=== PATIENT | female | born 2000 | race Caucasian/White ===

== ENCOUNTER 2023-04-17 21:50 | Emergency (ER) | payer BC, MEDICAID, SELFPAY ==
[2023-04-17 22:09] VITALS: BP 119/76; PULSE 85; RESP 18; TEMP 36.9; O2SAT 100; BMI 20.8
[2023-04-18] VITALS: BP 112/66; PULSE 87; RESP 18; TEMP 36.9; O2SAT 98
--- NOTE | 2023-04-18 00:56 | ED.DENTAL ---
HPI - Dental/Oral General Chief complaint: Dental/Oral Stated complaint: tooth pain Time Seen by Provider: 04/18/23 00:50 Source: patient Mode of arrival: ambulatory Limitations: no limitations History of Present Illness HPI Narrative: Patient comes to the emergency room complaining of pain in the maxillary side on the right posteriorly. Patient states the pain started yesterday. Patient states that few months ago, possibly 4-5, patient had feeling some. Over the last couple of days, the pain started and gradually getting worse. Related Data Allergies Allergy/AdvReac Type Severity Reaction Status Date / Time No Known Allergies Allergy Verified 04/17/23 22:07 Review of Systems Review of Systems: Constitutional : No Weight loss, No Fever, No Chills, No Night Sweats, No Fatigue, No Malaise ENT/Mouth : Complaining of dental pain on right maxillary side, No Hearing loss, No Ear Pain, No Nasal Congestion, No Sinus Pain, No Hoarseness, No sore throat, No Rhinorrhea, No Swallowing Difficulty Eyes: No Eye Pain, No Swelling, No Redness, No Foreign Body, No Discharge, No Vision Changes Cardiovascular : No Chest Pain, No SOB, No Dyspnea on Exertion, No Orthopnea, No Edema, No Palpitations Respiratory : No Cough, No Sputum, No Wheezing, No Smoke Exposure, No Dyspnea Gastrointestinal : No Nausea, No Vomiting, No Diarrhea, No Constipation, No abdominal Pain, No Hematochezia, No Melena Genitourinary : no irregular bleeding, No Dysuria, No Urinary Frequency, No Hematuria, No Urinary Incontinence, No Urgency, No Flank Pain, No Urinary Flow Changes, No Hesitancy Musculoskeletal : No joint pain, No Myalgias, No Joint Swelling Skin : No Skin Lesions, No rash Neuro : No Weakness, No Numbness, No Paresthesias, No Loss of Consciousness, No Dizziness, No Headache Psych : No Anxiety/Panic, No Depression, No SI/HI/AH/VH, No Social Issues, Heme/Lymph: No Bruising, No Bleeding,No Lymphadenopathy Endocrine : No Polyuria, No Polydipsia, No Temperature Intolerance PMFSH Social History Social History Advance Directives: No Advance Directives Information Provided: Yes Physical Exam Vital Signs: Vital Signs: Last Vital Signs Temp 98.5 F 04/18/23 00:00 Pulse 87 04/18/23 00:00 Resp 18 04/18/23 00:00 BP 112/66 04/18/23 00:00 Pulse Ox 98 04/18/23 00:00 O2 Del Method Room Air 04/18/23 00:00 BMI result Body Mass Index 20.8 Const: Other: Appearance: Alert. Oriented X3. No acute distress. Eyes: Pupils equal, round and reactive to light. ENT: Pharynx normal. Mild gingival swelling on the right maxillary side, no obvious abscess formation Neck: Normal inspection. Neck supple. No lymph nodes noted. No crepitus CVS: Normal heart rate and rhythm. Pulses normal. Normal S1 and S2 Respiratory: No respiratory distress. Breath sounds normal. No Wheezing. No rales Abdomen: Soft and nontender. No rigidity. No distention. Skin: Skin warm and dry. Normal skin color. Normal skin turgor. Extremities: No lower extremity edema. No Lacerations. No Rash Neuro: Oriented X 3. No motor deficit. No sensory deficit. Moving all extremities. No slurred speech. CN 2 through 12 grossly intact Psych: calm, cooperative, normal affect Medical Decision Making Medical Decision Making MDM Narrative: -I discussed the physical exam with the patient, patient likely to be developing an abscess. Patient will need to follow up with her dentist. -in the emergency room, patient was given p.o. penicillin to move her arms ketorolac IM Differential Diagnosis Differential Diagnoses: The differential diagnosis associated with the presentation includes (Dental pain, abscess, gingivitis) Discharge Plan Discharge Clinical Impression: Pain, dental Patient Disposition: Home, Self-Care Instructions: Toothache (ED) Additional Instructions: Please follow-up with your primary care physician tomorrow. If you have any worsening or new symptoms, please return to the emergency room or call 911
[2023-04-18] MEDS: Penicillin V Potassium 250 MG TABLET 500 MG PO (01:25)
[2023-04-18] MEDS: Ketorolac Tromethamine 60 MG/2 ML VIAL IM (01:25)
--- NOTE | 2023-04-18 01:34 | PC.NURSE ---
pt medicated according to mar. pt partner at bedside.
[2023-04-18 02:24] VITALS: BP 103/46; PULSE 80; RESP 18; TEMP 37.1; O2SAT 100
[2023-04-18 04:00] VITALS: PULSE 68; RESP 16; TEMP 36.8
--- NOTE | 2023-04-18 04:20 | PC.NURSE ---
this rn, additonal rn, charge account clerk, powerhouse mechanic attempted to print discharge pcket. this rn contacted IT, IT unable resolve issue. ticket put in place. screen shot of discharge instructions nad scriptinstructions given to pt per powerhouse mechanic. pt calm and cooperative. pt denies pain at discharge plan. pt ambulatory discharge to waiting room awaiting ride from friend pt verbalized understanding of discharge plan
== END 2023-04-18 04:25 | disposition home or self-care (01) ==
PROVIDERS: Emergency Provider Internal Medicine
DX: K08.89 Other specified disorders of teeth and supporting structures (principal)
CPT/HCPCS: 96372; 99284; J1885